=== PATIENT | female | born 1980 | race Caucasian/White ===

== ENCOUNTER 2017-11-26 07:46 | Inpatient (IN) | payer OTHER ==
[~2017-11-26] VITALS: Ht 175.3 cm; Wt 116.6 kg
[~2017-11-26 07:46] MED LIST: ALBUTEROL2.5 MG/0.5 INH; ALBUTEROL2.5 MG/3 M INH; OXYCODONE-ACET1 EAC1 PO; PREDNISONE20 MG PO; PRENATAL COMPL1 EACH PO; PROVENTIL HFA6.7 GM INH; QVAR7.3 G1 INH; SPACE CHAMBER1 EACH MC; SPIRIVA18 MCG INH; VENTOLIN HFA18 GM INH; ZOVIRAX400 MG PO
--- OUTSIDE RECORDS SUMMARY | 2017-11-26 07:50 | XMS ---
PreManage Notification: MY DILLON Security Powertrain Design Engineer Events No recent Security Events currently on file CRITERIA MET - Group Notification CARE PROVIDERS There are no care providers on record at this time. Juan has no Care Guidelines for this patient. Angélica VISIT COUNT (12 MO.) 1 [facility]ALILE[facility] Denny TOTAL 1 NOTE: Visits indicate total known visits. ED/C VISIT TRACKING (12 MO.) 11/26/2017 07:47 [facility] [place] TYPE: Emergency COMPLAINT: - SOB INPATIENT VISIT TRACKING (12 MO.) No inpatient visits to display in this time frame [id number]
[2017-11-26] MEDS ORDERED: ADVAIR 250-501 EACH INH (08:11)
--- NOTE | 2017-11-26 11:55 | NUR ---
37 YEAR OLD FEMALE PATIENT ADMITTED TO CCU UNDER DR. ABAD FROM ED VIA STRETCHER WITH DX OF EXERBATION ASTHMA. UPON ADMIT TO CCU PATIENT IS ALERT, ORIENTED, AND COOPERATIVE. IS SOMEWHAT ANXIOUS. PATIENT STATES SHE IS BREATHING BETTER NOW THAT EARILER. IS TO STAND FROM STRETCHER AND MOVE TO BED. ADMISSION PROCESS STARTED.
--- NOTE | 2017-11-26 13:00 | NUR ---
MUCH LESS SHORT OF BREATH. RESTFUL WITH HOB ELEVATED.
--- NOTE | 2017-11-26 14:00 | NUR ---
C/O HEADACHE, TYLENOL ORDERED.
--- NOTE | 2017-11-26 14:16 | NUR ---
TYLENOL 650 MG PO GIVEN FOR HEADACHE. REFUSING FOOD AT THIS TIME.
--- NOTE | 2017-11-26 16:00 | NUR ---
ASSESSMENT DONE. LUNGS WITH BETTER AIR EXCHANGE, CONTINUE TO INS WHEEZE THROUGH OUT.
--- NOTE | 2017-11-26 17:00 | NUR ---
ACCUCHECK-150. 1 UNIT HUMALOG INSULIN SQ GIVEN.
--- NOTE | 2017-11-26 18:00 | NUR ---
TOOK DINNER WELL.
--- NOTE | 2017-11-26 19:14 | NUR ---
UP TO BR, C/O INCREASE CHEST TIGHTNESS. REQUESTING NEB TX.
--- NOTE | 2017-11-26 19:20 | NUR ---
SHIFT REPORT RECEIVED FROM ANDRÉS ARGUELLES. PT CURRENTLY RESTING IN BED. 2L O2 VIA NC IN PLACE. IV SL. R.T. CALLED TO GIVE BREATHING TREATMENT PER PT REQUEST. CALL LIGHT WITHIN REACH.
--- NOTE | 2017-11-26 20:00 | NUR ---
PT IS ALERT/ORIENTED, STATES HER HEADACHE PAIN IS "A LITTLE BIT" IMPROVED, STATES THAT IT IS TOLERABLE AT THIS TIME, DENIES OTHER PAIN. LUNGS HAVE SCATTERED INSPIRATORY WHEEZES NOTED THROUGHOUT, 2L O2 IN PLACE, DENIES SOB WHILE AT REST. HR TACHY 110'S. BOWEL TONES ACTIVE, DENIES NAUSEA, PT PROVIDED WITH SNACK PER REQUEST. IV PATENT, SL. SKIN INTACT. CB, 2 UNITS SLIDING SCALE ADMINISTERED, PT CONCERNED ABOUT HIGH BLOOD SUGARS, DISCUSSED THAT IT IS EXPECTED WHILE RECEIVING STEROIDS, PT STATES UNDERSTANDING. PT REMINDED THAT A SPUTUM SAMPLE IS NEEDED. CALL LIGHT WITHIN REACH, NO FURTHE REQUESTS AT THIS TIME.
--- NOTE | 2017-11-26 21:20 | NUR ---
PT UP TO BATHROOM WITH SBA, STEADY ON FEET. VOIDED AND THEN RETURNED TO BED. PT REQUESTS MEDICATION FOR 5/10 HEADACHE PAIN, 650MG PO TYLENOL ADMINISTERED. PT STATES SHE IS GOING TO TRY TO SLEEP NOW. CALL LIGHT WITHIN REACH. WILL CONTINUE TO MONITOR.
--- NOTE | 2017-11-26 23:19 | NUR ---
PT APPEARS TO BE RESTING COMFORTABLY, NO APPARENT DISTRESS. RESPIRATIONS EVEN AND UNLAORED, RR:20, SPO2:98% ON 2L, HR:96. WILL ALLOW FOR REST AND CONTINUE TO MONITOR.
--- NOTE | 2017-11-27 00:06 | NUR ---
ASSESSMENT COMPLETED, NO CHANGES FROM PREVIOUS ASSESSMENT. CONTINUES TO HAVE SLIGHT INSPIRATORY WHEEZE, 2L O2 VIA NC, DENIES SOB AT THIS TIME. DENIES PAIN AND NAUSEA. R.T. IN TO GIVE BREATHING TREATMENT. CALL LIGHT WITHIN REACH, WILL CONTINUE TO MONITOR.
--- NOTE | 2017-11-27 02:45 | NUR ---
PT APPEARS TO BE SLEEPING, NO APPARENT DISTRESS. RESPIRATIONS EVEN AND UNLABORED, RR:16, SPO2: 99% ON 2L, HR:75. WILL ALLOW FOR REST AND CONTINUE TO MONITOR.
--- NOTE | 2017-11-27 04:12 | NUR ---
ASSESSMENT COMPLETED. PT DENIES PAIN. LUNGS SOUND CLEAR THROUGHOUT, REMAINS ON 2L O2 VIA NC, DENIES SOB AT THIS TIME. HR REGULAR HR:70-80'S. DENIES NAUSEA. IV SL. PT DENIES NEEDS AT THIS TIME, CALL LIGHT WITHIN REACH.
--- NOTE | 2017-11-27 05:51 | NUR ---
PT UP TO BATHROOM, VOIDED 700ML AND THEN RETURNED TO BED. PT REQUESTS SOMETHING FOR HEARTBURN, N.I.O. ENTERED FOR MAALOX. PT DENIES FURTHER REQUESTS AT THIS TIME.
--- NOTE | 2017-11-27 08:12 | NUR ---
PATIENT AWAKE THIS AM AND IN GOOD SPIRITS. PT STATES SHE IS FEELING MUCH BETTER OVERALL AND DENIES SHORTNESS OF BREATH. CBG 111 THIS AM - NO INSULIN REQUIRED. ASSESSMENT COMPLETE AND VITALS TAKEN. LUNG SOUNDS ARE CLEAR THROUGHOUT WITH SLIGHT EXP WHEEZE NOTED IN LEFT LOWER LUNG BASE. HR 60-90s SINUS. SP02 98% ON ROOM AIR. PT CURIOUS ABOUT BEING D/C HOME TODAY AND WILL FURHER DISCUSS WITH PHYSICIAN.
[2017-11-27] MEDS ORDERED: LEVOTHYROXINE25 MCG PO (09:27)
--- NOTE | 2017-11-27 09:27 | NUR ---
MED REC COMPLETE
--- NOTE | 2017-11-27 09:36 | NUR ---
AM MEDS GIVEN AT THIS TIME. PT REQUESTING ANOTHER BREATHING TREATMENT AND RT CALLED. LUNGS NOW SHOW EXP WHEEZING THROUGHOUT. HR UP TO 110S. MONITOR CLOSELY.
[2017-11-27] MEDS ORDERED: ADVAIR 250-501 EACH INH (11:18)
[2017-11-27] MEDS ORDERED: SINGULAIR10 MG PO (11:18)
--- NOTE | 2017-11-27 14:08 | NUR ---
PATIENT PENDING TRANSFER TO MEDICAL FLOOR. PT ATE HER LUNCH AND HAS BEEN RESTING WELL. PT REQUESTING NEB TX AT THIS TIME FOR FEELING "TIGHT IN HER CHEST." SP02 97% ON ROOM AIR AND HR 100s.
--- NOTE | 2017-11-27 14:30 | NUR ---
PT RESTING IN BED, SHE IS ALERT AND ORIENTED. PT STATED THAT SHE IS SO MUCH BETTER THAN YESTERDAY. PT MENTIONED THAT SHE WAS WANTING TO NAP-I EXTENDED A BLESSING WILL FOLLOW
--- NOTE | 2017-11-27 14:36 | NUR ---
PT HAS ARRIVED ONTO M/S UNIT FROM CCU INTO ROOM 125. PT HAS NO C/O PAIN, NO N/V, AND STATES THAT HER BREATHING IS UNDER CONTROL. ASSESSMENT COMPLETED. ROOM AIR. SALINE LOCKED. SEE ASSESSMENT. CALL LIGHT WITHIN REACH. ORIENTED TO ROOM AND UNIT. VS COMPLETED. WILL CONTINUE TO MONITOR.
--- NOTE | 2017-11-27 16:03 | NUR ---
PT C/O SLIGHT HEADACHE AT THIS TIME WELL SOME HEARTBURN. TUMS AND TYLENOL GIVEN. PT REMAINS PLEASANT AND COOPERATIVE, AND IS LAUGHING WITH VISITORS AT THE BEDSIDE. PT IS EATING AN EARLY DINNER; 1 UNIT INSULIN GIVEN FOR FSBS OF 154. PT SHOWERED THIS AFTERNOON. PT HAS NO FURTHER QUESTIONS OR CONCERNS AT THIS TIME. CALL LIGHT WITHIN REACH. WILL CONTINUE TO MONITOR AND FOLLOW UP HEADACHE AND HEARTBURN.
--- NOTE | 2017-11-27 17:45 | NUR ---
PT VS AND CONDITION STABLE TODAY SINCE ARRIVING TO UNIT FROM CCU. PT HAS BEEN PLEASANT, CALM AND COOPERATIVE. SHE HAD SOME C/O HEARTBURN AND A HEADACHE BUT PRN MEDICATIONS HELPED GET RID OF BOTH. A/O X4. ROOM AIR. SALINE LOCKED. INDEPENDENT AMBULATOIN. PT HAS NO CURRENT QUESTIONS OR CONCERNS AND STATES HER READINESS FOR DC TOMORROW. CALL LIGHT WITHIN REACH. WILL CONTINUE TO MONITOR.
--- NOTE | 2017-11-27 20:00 | NUR ---
PATIENT IN BED WATCHING TV, NO SOB, NO PAIN AT THIS TIME, AND IN NO DISTRESS. CALL LIGHT IN REACH.
--- NOTE | 2017-11-27 22:00 | NUR ---
PATIENT CONTINUES TO DO WELL, LUNGS ARE CLEAR, PATIENT INDEPENDENT, CALL LIGHT IN REACH.
--- NOTE | 2017-11-28 00:47 | NUR ---
PATIENT RESTING QUIETLY ON HER RIGHT SIDE. RESPIRATIONS REGULAR AND UNLABORED. EYES CLOSED AND CALL LIGHT IN REACH.
--- NOTE | 2017-11-28 03:00 | NUR ---
PATIENT CONTINUES TO REST QUIETLY ON HER RIGHT SIDE. RESPIRATIONS 16. EYES CLOSED. RESPIRATIONS REGULAR AND EVEN. CALL LIGHT IN REACH.
--- NOTE | 2017-11-28 06:45 | NUR ---
PATIENT JUST HAD A BREATHING TREATMENT AND ALL LUNG RAMÍREZ SOUND CLEAR. AM MEDS GIVEN.
--- NOTE | 2017-11-28 08:30 | NUR ---
PT RESTING IN BED AT THIS TIME WITH NO C/O PAIN, NO N/V, NO SOB OR BREATHING ISSUES. PT IS PLEASANT, CALM AND COOPERATIVE. STATES HER READINESS FOR DISCHARGE. ASSESSMENT COMPLETED. INDEPENDENT WITH AMBULATION. ROOM AIR. SALINE LOCKED. PT HAS NO QUESTIONS OR CONCERNS AT THIS TIME. CALL LIGHT WITHIN REACH. WILL CONTINUE TO MONITOR.
[2017-11-28] MEDS ORDERED: DOXYCYCLINE HY100 MG PO (09:00)
[2017-11-28] MEDS ORDERED: PREDNISONE20 MG PO (09:00)
--- NOTE | 2017-11-28 10:02 | NUR ---
pt resting in bed safely. pt refused shower. pt has no needs at this time. call light benny snow.
--- NOTE | 2017-11-29 08:17 | NUR ---
PT SITTING UP IN BED DRESSED AND WAITING DC. SHE SAID SHE IS SO MUCH BETTER AND IS WAITING FOR HER RIDE ALSO. EXTENDED A BLESSING, WILL FOLLOW NEEDED
== END 2017-11-28 10:10 | disposition home or self-care (01) | DRG 194 ==
LOC: ED 07:46 → CCU 11:21 → MS 11-27 14:42
PROVIDERS: ADMIT Student in an Organized Health Care Education/Training Program
DX: J18.9 Pneumonia, unspecified organism (principal); J45.901 Unspecified asthma with (acute) exacerbation; E03.9 Hypothyroidism, unspecified
CPT/HCPCS: 36415; 36600; 71045; 80048; 80053; 82803; 83735; 85025; 94640; 94644; 94660; 94667; 94668; 96372; 96374; 96375; 99285; J0456; J0696; J1650; J1815; J2405; J2920; J2930; J3475; J7050; J7512

== ENCOUNTER 2020-12-06 11:10 | Emergency (ER) | payer OTHER ==
[~2020-12-06] VITALS: Ht 175.3 cm; Wt 108.9 kg
[~2020-12-06 11:10] MED LIST changes: +ADVAIR 250-501 EACH INH; +DOXYCYCLINE HY100 MG PO; +LEVOTHYROXINE25 MCG PO; +SINGULAIR10 MG PO
--- OUTSIDE RECORDS SUMMARY | 2020-12-06 11:18 | XMS ---
PreManage Notification: MY DILLON Security Auto Rental Clerk Events No recent Security Events currently on file CRITERIA MET - Group Notification CARE PROVIDERS CLARISSE BOLANOS Nurse Practitioner: Family 11/26/2017-Current PHONE: [phone] Juan has no Care Guidelines for this patient. Care History Medical/Surgical 11/27/2017 [facility] - Patient is currently established with [facility]. If patient is seen in the ED during business hours. Please contact CHWs at [facility]. Care Recommendation: This patient has had 5 or more Emergency Department visits in the last 12 months.\T\nbsp; Patient requires education on the scope and purpose of the ED as an acute care provider not a Primary Care Provider and should not be utilized for chronic conditions.\T\nbsp; These are guidelines and the provider should exercise clinical judgment when providing care. E.D. VISIT COUNT (12 MO.) 1 [facility] TOTAL 1 NOTE: Visits indicate total known visits. ED/UCC VISIT TRACKING (12 MO.) 12/06/2020 11:10 [facility] [place] TYPE: Emergency COMPLAINT: - ASTHMA ATTACK INPATIENT VISIT TRACKING (12 MO.) No inpatient visits to display in this time frame [id number]
[2020-12-06] MEDS ORDERED: PREDNISONE20 MG PO (14:48)
== END 2020-12-06 15:00 | disposition home or self-care (01) ==
LOC: ED 11:10
DX: J45.901 Unspecified asthma with (acute) exacerbation (principal); Z20.822 Contact with and (suspected) exposure to COVID-19; Z87.891 Personal history of nicotine dependence; Z79.899 Other long term (current) drug therapy
CPT/HCPCS: 94640; 99284; J7512; U0003

== ENCOUNTER 2021-05-29 09:52 | Emergency (ER) | payer OTHER ==
[~2021-05-29] VITALS: Ht 175.3 cm; Wt 108.9 kg
--- OUTSIDE RECORDS SUMMARY | 2021-05-29 09:56 | XMS ---
PreManage Notification: MY DILLON Security Manager Proposal Events No recent Security Events currently on file CRITERIA MET - Group Notification CARE PROVIDERS [facility] 12/07/2020-Current PHONE: [phone] CLARISSE BOLANOS Nurse Practitioner: Family 11/26/2017-Current PHONE: Unknown Juan has no Care Guidelines for this patient. Care History Medical/Surgical 11/27/2017 [facility] - Patient is currently established with [facility]. If patient is seen in the ED during business hours. Please contact CHWs at [facility]. Care Recommendation: This patient has had 5 [...] providing care. E.D. VISIT COUNT (12 MO.) 2 G[facility] Denny TOTAL 2 NOTE: Visits indicate total known visits. ED/UCC VISIT TRACKING (12 MO.) 05/29/2021 09:52 [facility] [place] TYPE: Emergency COMPLAINT: - DIFFICULTY BREATHING 12/06/2020 11:10 [facility] [place] TYPE: Emergency COMPLAINT: - ASTHMA ATTACK DIAGNOSES: - Other fdc (current) drug therapy - Unspecified asthma with (acute) exacerbation - Unspecified asthma, uncomplicated - Personal history of nicotine dependence INPATIENT VISIT TRACKING (12 MO.) No inpatient visits to display in this time frame [id number]
[2021-05-29] MEDS ORDERED: PREDNISONE20 MG PO (10:38)
== END 2021-05-29 12:18 | disposition home or self-care (01) ==
LOC: ED 09:52
DX: J45.901 Unspecified asthma with (acute) exacerbation (principal); Z87.891 Personal history of nicotine dependence; Z79.899 Other long term (current) drug therapy; Z79.51 Long term (current) use of inhaled steroids
CPT/HCPCS: 71045; 94640; 94644; 96374; 96375; 99285-25; J2930; J3475

== ENCOUNTER 2021-05-29 20:30 | Emergency (ER) | payer OTHER ==
[~2021-05-29] VITALS: Ht 175.3 cm; Wt 108.9 kg
--- OUTSIDE RECORDS SUMMARY | 2021-05-29 20:38 | XMS ---
PreManage Notification: MY DILLON Security Terrapin Fisher Events No recent Security Events currently on file CRITERIA MET - [facility] - 2 Visits in 30 Days - Group Notification CARE PROVIDERS [facility] Emergency Medicine 12/07/2020-Current PHONE: [phone] CLARISSE BOLANOS Nurse Practitioner: Family 11/26/2017-Current PHONE: Unknown Juan has no Care Guidelines for this patient. Care History Medical/Surgical 11/27/2017 [facility] - Patient is currently established with [facility]. If patient is seen in the ED during business hours. Please contact CHWs at [facility]. Care Recommendation: This patient has had 5 [...] providing care. E.D. VISIT COUNT (12 MO.) [address] [facility] TOTAL 3 NOTE: Visits indicate total known visits. ED/UCC VISIT TRACKING (12 MO.) 05/29/2021 20:31 [facility] [place] TYPE: Emergency COMPLAINT: - ASTHMA ATTACK 05/29/2021 09:52 [facility] [place] TYPE: Emergency COMPLAINT: - DIFFICULTY BREATHING 12/06/2020 11:[address] [facility] [place] TYPE: Emergency COMPLAINT: - ASTHMA ATTACK DIAGNOSES: - Other half-way (current) drug therapy - Unspecified asthma with (acute) exacerbation - Unspecified asthma, uncomplicated - Personal history of nicotine dependence INPATIENT VISIT TRACKING (12 MO.) No inpatient visits to display in this time frame [id number]
== END 2021-05-29 21:48 | disposition home or self-care (01) ==
LOC: ED 20:30
DX: J45.901 Unspecified asthma with (acute) exacerbation (principal); Z87.891 Personal history of nicotine dependence; Z79.899 Other long term (current) drug therapy; Z79.52 Long term (current) use of systemic steroids
CPT/HCPCS: 99284

== ENCOUNTER 2021-06-16 09:17 | Emergency (ER) | payer OTHER ==
[~2021-06-16] VITALS: Ht 175.3 cm; Wt 108.9 kg
--- OUTSIDE RECORDS SUMMARY | 2021-06-16 09:24 | XMS ---
PreManage Notification: MY DILLON Security Bilingual Case Manager Events No recent Security Events currently on file CRITERIA MET - [facility] - 2 Visits in 30 Days - Group Notification CARE PROVIDERS [facility] Emergency Medicine 12/07/2020-Current PHONE: [phone] CLARISSE BOLANOS Nurse Practitioner: Family 11/26/2017-Current PHONE: Unknown Juan has no Care Guidelines for this patient. Care History Medical/Surgical 11/27/2017 [facility] - Patient is currently established with [facility]. If patient is seen in the ED during business hours. Please contact CHWs at [facility]. Care Recommendation: This patient has had 5 [...] providing care. E.D. VISIT COUNT (12 MO.) [address] [facility] TOTAL 4 NOTE: Visits indicate total known visits. ED/UCC VISIT TRACKING (12 MO.) 06/16/2021 09:18 [facility] [place] TYPE: Emergency COMPLAINT: - BACK PAIN 05/29/2021 20:31 [facility] [place] TYPE: Emergency COMPLAINT: - ASTHMA ATTACK DIAGNOSES: - Personal history of nicotine dependence - Unspecified asthma with (acute) exacerbation - snf (current) use of systemic steroids - Shortness of breath - Other equipment operator intermodal yard (current) drug therapy 05/29/2021 09:52 [facility] [place] TYPE: Emergency COMPLAINT: - DIFFICULTY BREATHING DIAGNOSES: - Personal history of nicotine dependence - snf (current) use of inhaled steroids - Shortness of breath - Other [facility]p (current) drug therapy - Unspecified asthma with (acute) exacerbation 12/06/2020 11:10 [facility] [place] TYPE: Emergency COMPLAINT: - ASTHMA ATTACK DIAGNOSES: - Other m[facility]p (current) drug therapy - Unspecified asthma with (acute) exacerbation - Unspecified asthma, uncomplicated - Personal history of nicotine dependence INPATIENT VISIT TRACKING (12 MO.) No inpatient visits to display in this time frame [id number]
[2021-06-16] MEDS ORDERED: HYDROCODON-ACE1 EA10 PO (09:27)
[2021-06-16] MEDS ORDERED: PREDNISONE20 MG PO (10:14)
== END 2021-06-16 10:32 | disposition home or self-care (01) ==
LOC: ED 09:17
DX: M54.41 Lumbago with sciatica, right side (principal); J45.909 Unspecified asthma, uncomplicated; Z87.891 Personal history of nicotine dependence; Z79.899 Other long term (current) drug therapy; Z79.52 Long term (current) use of systemic steroids
CPT/HCPCS: 99283; J7512

== ENCOUNTER 2022-01-26 05:21 | Emergency (ER) | payer OTHER ==
[~2022-01-26] VITALS: Ht 175.3 cm; Wt 108.9 kg
[~2022-01-26 05:21] MED LIST changes: +HYDROCODON-ACE1 EA10 PO
--- OUTSIDE RECORDS SUMMARY | 2022-01-26 05:23 | XMS ---
PreManage Notification: MY DILLON Security Manager Rfid Events No recent Security Events currently on file CRITERIA MET - Group Notification CARE PROVIDERS [facility] Emergency Medicine 12/07/2020-Current PHONE: [phone] CLARISSE BOLANOS Nurse Practitioner: Family 11/26/2017-Current PHONE: Unknown Juan has no Care Guidelines for this patient. Care History Medical/Surgical 11/27/2017 [facility] - Patient is currently established with [facility]. If patient is seen in the ED during business hours. Please contact CHWs at [facility]. Care Recommendation: This patient has had [...] known visits. 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 - Unspecified asthma with (acute) exacerbation - Personal history of nicotine dependence - Other alf (current) drug therapy - Headache, unspecified - Wheezing - Heartburn 05/29/2021 09:52 [facility] [place] TYPE: Emergency COMPLAINT: - DIFFICULTY BREATHING DIAGNOSES: - Unspecified asthma with (acute) exacerbation - Shortness of breath - Personal history of nicotine dependence - Other alf (current) drug therapy - 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
[2022-01-26] MEDS ORDERED: PREDNISONE20 MG PO (06:33)
== END 2022-01-26 08:57 | disposition home or self-care (01) ==
LOC: ED 05:21
DX: U07.1 COVID-19 (principal); J45.901 Unspecified asthma with (acute) exacerbation; Z87.891 Personal history of nicotine dependence; Z79.899 Other long term (current) drug therapy
CPT/HCPCS: 36415; 71045; 80053; 83605; 84703; 85025; 87502; 96365; 96375; 99285-25; J0696; J2930; J7030; U0003

== ENCOUNTER 2022-02-11 18:30 | Emergency (ER) | payer OTHER ==
[~2022-02-11] VITALS: Ht 175.3 cm; Wt 108.9 kg
--- OUTSIDE RECORDS SUMMARY | 2022-02-11 18:38 | XMS ---
PreManage Notification: MY DILLON Security Business Services Coordinator Events No recent Security Events currently on file CRITERIA MET - [facility] - 2 Visits in 30 Days - Group Notification CARE PROVIDERS [facility] Emergency Medicine 12/07/2020-Current PHONE: [phone] CLARISSE BOLANOS Nurse Practitioner: Family 11/26/2017-Current PHONE: Unknown Juan has no Care Guidelines for this patient. Care History Medical/Surgical 11/27/2017 [facility] - Patient is currently established with [facility]. If patient is seen in the ED during business hours. Please contact CHWs at [facility]. Care Recommendation: This patient has had 5 [...] providing care. E.D. VISIT COUNT (12 MO.) [address] [facility] TOTAL 5 NOTE: Visits indicate total known visits. ED/UCC VISIT TRACKING (12 MO.) 02/11/2022 18:31 [facility] [place] TYPE: Emergency COMPLAINT: - B# 01/26/2022 05:21 [facility] [place] TYPE: Emergency COMPLAINT: - SOB DIAGNOSES: - COVID-19 - Other oysterman (current) drug therapy - Unspecified asthma with (acute) exacerbation - Personal history of nicotine dependence - Shortness of breath 06/16/2021 09:18 [facility] [place] TYPE: Emergency COMPLAINT: - BACK PAIN/NO INJ DIAGNOSES: - Unspecified asthma, uncomplicated - Other usp (current) drug therapy - Lumbago with sciatica, right side - terminal carman (current) use of systemic steroids - Low back pain, unspecified - Personal history of nicotine dependence 05/29/2021 20:31 [facility] [place] TYPE: Emergency COMPLAINT: - ASTHMA ATTACK DIAGNOSES: - Wheezing - Heartburn - Shortness of breath - terminal carman (current) use of systemic steroids - Unspecified asthma with (acute) exacerbation - Personal history of nicotine dependence - Other oysterman (current) drug therapy - Headache, unspecified 05/29/2021 09:[address] [facility] [place] TYPE: Emergency COMPLAINT: - DIFFICULTY BREATHING DIAGNOSES: - Other usp (current) drug therapy - penitentiary (current) use of inhaled steroids - Unspecified asthma with (acute) exacerbation - Shortness of breath - Personal history of nicotine dependence INPATIENT VISIT TRACKING (12 MO.) No inpatient visits to display in this time frame [id number]
== END 2022-02-11 20:40 | disposition home or self-care (01) ==
LOC: ED 18:30
DX: J45.901 Unspecified asthma with (acute) exacerbation (principal); Z87.891 Personal history of nicotine dependence; Z79.899 Other long term (current) drug therapy; Z20.822 Contact with and (suspected) exposure to COVID-19
CPT/HCPCS: 36415; 71045; 80053; 85025; 87502; 94640; 94644; 96374; 99285-25; A9270; C9803; J2930; U0003

== ENCOUNTER 2024-05-31 09:22 | Emergency (ER) | payer OTHER ==
[~2024-05-31] VITALS: Ht 175.3 cm; Wt 92.4 kg
[~2024-05-31 09:22] MED LIST changes: +LIDODERM1 EACH TOP; +METHYLPREDNISOLO4 M1 PO; +ZITHROMAX250 MG PO
[2024-05-31] MEDS ORDERED: FLUTICASONE-SA1 EAC4 INH (09:36)
[2024-05-31] MEDS ORDERED: LEVOTHYROXINE25 MCG PO (09:36)
[2024-05-31] MEDS ORDERED: MOUNJARO7.5 MG/0.5 SQ (09:39)
[2024-05-31] MEDS ORDERED: SODIUM CHLORIDE 0.9% 1,000 ML IV ONE ×2 (09:45→10:45)
[2024-05-31] MEDS ORDERED: ondansetron HCL 4 MG/2 ML VIAL IV ONE (09:45)
[2024-05-31 09:59] LABS: BASOPHILS 0.5 % (0-2); EOSINOPHILS 2.6 % (0-6); HEMATOCRIT 43.2 % (35.0-50.0); LYMPHOCYTES 19.7 % (24-44); MCH 29.1 (27-36); MCHC 34.7 g/dl (30-36); MCV 83.7 fl (81-99); MONOCYTES 10.6 % (0-12); NEUTROPHILS 66.6 % (39-80); PLATELET COUNT 238 K/uL (140-440); RBC 5.16 M/ul (4.3-5.7); RDW 13.5 (10.5-15.0)
[2024-05-31 10:12] LABS: ALBUMIN 3.5 g/dL (3.4-5.0); ALBUMIN/GLOBULIN RATIO 0.95 (1.1-2.4); ANION GAP 13.8 (7-21); BILIRUBIN, TOTAL 0.4 mg/dL (0.2-1.0); BUN/CREATININE RATIO 11.49 (6.0-28.6); CALCIUM 8.6 mg/dL (8.5-10.1); CREATININE, SERUM 0.87 mg/dL (0.55-1.02); MAGNESIUM 1.8 mg/dL (1.8-2.4); POTASSIUM 3.8 mmol/L (3.5-5.1); PROTEIN, TOTAL 7.2 g/dL (6.4-8.2)
[2024-05-31] MEDS ORDERED: PROMETHAZINE HC25 M1 PO (11:12)
[2024-05-31] MEDS ORDERED: ONDANSETRON ODT8 MG PO (11:12)
[2024-05-31] MEDS ORDERED: BENZONATATE100 MG PO (11:27)
[2024-05-31] MEDS ORDERED: BENZONATATE 100 MG CAP PO ONE (11:30)
[2024-05-31 11:36] VITALS: BP 129/81
== END 2024-05-31 11:44 | disposition home or self-care (01) ==
LOC: ED 09:22
PROVIDERS: Emergency Medicine
DX: B34.9 Viral infection, unspecified (principal); R74.01 Elevation of levels of liver transaminase levels; J45.909 Unspecified asthma, uncomplicated; Z79.899 Other long term (current) drug therapy; Z87.891 Personal history of nicotine dependence
CPT/HCPCS: 36415; 80053; 83690; 83735; 84703; 85025; 96361; 96374; 99284-25; J2405; J7030

== ENCOUNTER 2024-12-13 13:07 | Emergency (ER) | payer OTHER ==
[~2024-12-13] VITALS: Ht 175.3 cm; Wt 87.0 kg
[~2024-12-13 13:07] MED LIST changes: +BENZONATATE100 MG PO; +FLUTICASONE-SA1 EAC4 INH; +MOUNJARO7.5 MG/0.5 SQ; +ONDANSETRON ODT8 MG PO; +PROMETHAZINE HC25 M1 PO
[2024-12-13] MEDS ORDERED: FLUTICASONE-SA1 EACH INH (13:20)
[2024-12-13] MEDS ORDERED: IPRAT-ALBUT 0.5-3 ML INH (13:20)
[2024-12-13] MEDS ORDERED: ALBUTEROL/IPRATROPIUM 3 ML NEB INH ONE (14:00)
[2024-12-13 14:15] LABS: CORONAVIRUS COVID-19 AG NEGATIVE (NEGATIVE)
[2024-12-13] MEDS ORDERED: PREDNISONE20 MG PO (14:30)
[2024-12-13] MEDS ORDERED: predniSONE 20 MG TAB PO ONE (14:30)
[2024-12-13] MEDS ORDERED: BENZONATATE100 MG PO (14:32)
[2024-12-13 14:48] VITALS: BP 113/78
== END 2024-12-13 14:49 | disposition home or self-care (01) ==
LOC: ED 13:07
PROVIDERS: Emergency Medicine
DX: J06.9 Acute upper respiratory infection, unspecified (principal); J45.901 Unspecified asthma with (acute) exacerbation; Z87.891 Personal history of nicotine dependence; Z79.51 Long term (current) use of inhaled steroids
CPT/HCPCS: 36415; 71045; 94640; 99284-25; J7512